=== PATIENT | female | born 1980 | race Caucasian/White ===

== ENCOUNTER 2016-08-27 20:40 | Emergency (ER) | payer BC ==
[~2016-08-27] VITALS: Ht 167.6 cm; Wt 83.9 kg
[~2016-08-27 20:40] MED LIST: ANTIVERT/2525 MG PO; BENADRYL 25MG C25 MG PO; PHENERGAN 25MG.25 M1 OR
[2016-08-27] MEDS ORDERED: AUGMENTIN 875-1 EACH PO (21:29)
[2016-08-27] MEDS ORDERED: PROBIOTIC1 EAC3 PO (21:29)
--- NOTE | 2016-08-27 21:31 | Urgent Treatment Center Report ---
History of Present Issue Date/Time Seen by Provider 08/27/162112 Visit Reason Pt arrived:Walked Presenting Problem:PT WAS BUT BY A CAT AROUND 1800 ON HER RIGHT HAND Location if Accident: Onset of symptoms date/time:/ or onset unknown for:MEDICAL HX UNKNOWN Have you (or family members/close friends) recently traveled outside the [place]? N If Yes, where/when: Have you had exposure to infectious disease within the past month? TB? Other? Specify: c/o cat bite to right hand betwen thumb and 2nd digit "around 6" this evening. Was trying to put cat in carrier when dog jumped on her causing cat to bite. Cat belonged to patient. Wormed but otherwise not up to date on vaccines. Indoor and outdoor cat. Seems healthy. No sign of illness. Since bite, flushed wounds with running water, peroxide and alcohol. Swelling at site w/ blood drainage. Pain/ pressure around puncture wounds. Full ROM of fingers and hand but not without increasing pain. no redness, fever, aches. Last td unknown but sure more then 5 years ago. Source family Exam Limitations no limitations ALLERGIES Coded Allergies: No Known Allergies (08/27/16) History Medical History General Angina: No AK: No Hypertension? No Hyperlipidemia? No CHF? No COPD? No Asthma? No CVA? No Seizures? No Diabetes? No GB Disease: Yes MRSA? No TB? No Cancer? No Immunization HX DT/Tetanus 5-10 YRS Surgical Hx Previous Surgery?Y GALLBLADDER Social History Smoking Hx Smoker: Current Every Day Smoker Tobacco: Yes Type Cigarettes Packs/day < 1 Pack Alcohol Alcohol: No Review of Systems All Other Systems Reviewed and Negative Constitutional see HPI Musculoskeletal see HPI Skin see HPI, denies change in color Psychiatric/Neurological denies numbness, denies paresthesia, denies tingling, denies weakness Physical Exam Vital Signs Vital Signs Date Time Temp Pulse Resp B/P Pulse O2 O2 Flow FiO2 Ox Delivery Rate 08/27 2132 98.2 78 16 157/94 98 08/27 2041 98.2 78 16 157/94 98 General Appearance no apparent distress Respiratory Status No: respiratory distress. Cardiovascular no peripheral edema Peripheral Pulses Pulses normal Yes (radial) Extremities normal range of motion, approx 1mm puncture wounds x 2 to dorsal surface right hand, one in thenar space and other over mid shaft of 2-3rd metacarpal, mild swelling between the two puncture wounds, no redness, scant serosang drainage, tender Strength 5 Upper Ext (L), 5 Upper Ext (R) Neurologic alert, no motor/sensory deficits (right hand/digits) Skin warm/dry, see extremities Medical Decision Making LABS/Meds/Orders Pt receiving controlled substance in ED? No Results/Orders Current Medication Orders Sig/Marlen Start time Last Medication Dose Route Stop Time Status Admin Diphtheria/Pertussis/ 0.5 ML ONCE ONE 08/27 2129 DC 08/27 Tetanus Vacc IM 08/27 Diphtheria/Pertussis/ 0 .STK-MED ONE 08/27 2126 DC Tetanus Vacc IM Departure Departure Time of Disposition 2123 Disposition DC Home or Self Care(routine) Clinical Impression Primary Impression: Cat bite of hand Qualifiers: Encounter type: initial encounter Laterality: right Qualified Code: S61.451A - Open bite of right hand, initial encounter Condition STABLE Referrals Yusuf MILLER,Tommie (Family) 2-3 days to check healing Immediately for new or worsening symptoms Patient Instructions DI for Cat Bite, Tetanus, Diphtheria, and Pertussis Vaccine Additional Instructions Start antibx immediately. Friend is able to get pt augmentin tonight!! Continue to flush wound. No additional peroxide or alcohol necessary. Move fingers, hand, wrist, arm as typically would. Not using can increase pain and swelling Elevate to reduce swelling cool compresses Ibuprofen as needed for pain and swelling. Can alternate with tylenol for additional pain relief Monitor very closely. Increase risk for infection. Report any worsening pain, swelling, redness, streaking, fever, enlarged lymph nodes immediately. health department might be in touch. All animal bites are reported. Updated tdap vaccine. You have now been vaccinated against tetanus but also pertussis (whooping cough) if someone asks. Discharge Counseling Counseled pt/family regarding diagnosis, medications/RX, home care, follow up needs Prescriptions Current Visit Scripts Amoxicillin/Potassium Clav (Augmentin 875-125 Tablet) 1 EACH PO BID #20 TAB Lactobacillus Combo No.11 (Probiotic) 1 EACH PO DIRECTED #1 / at 2150
[2016-08-27 21:33] VITALS: BP 157/94
== END 2016-08-27 21:33 | disposition home or self-care (01) ==
LOC: UTC 20:40
DX: S61.451A Open bite of right hand, initial encounter (principal); Z23 Encounter for immunization; Z72.0 Tobacco use; W55.01XA Bitten by cat, initial encounter; Y92.009 Unspecified place in unspecified non-institutional (private) residence as the place of occurrence of the external cause

== ENCOUNTER 2017-04-28 18:54 | Emergency (ER) | payer BC ==
[~2017-04-28] VITALS: Ht 167.6 cm; Wt 90.7 kg
[~2017-04-28 18:54] MED LIST changes: +AUGMENTIN 875-1 EACH PO; +PROBIOTIC1 EAC3 PO
--- OUTSIDE RECORDS SUMMARY | 2017-04-28 19:04 | External Medical Summary Rpt | CCD ---
Author Author , HIRA INIGUEZ Address Unknown Phone [email or web address] Purpose Continuity of Care Document - through 2016
--- OUTSIDE RECORDS SUMMARY | 2017-04-28 19:04 | External Medical Summary Rpt | CCD ---
Author Author KEELEY Address Unknown Phone [email or web address] Purpose Continuity of Care Document - through 2016
--- OUTSIDE RECORDS SUMMARY | 2017-04-28 19:04 | External Medical Summary Rpt | CCD ---
Author Author KEELEY Address Unknown Phone [email or web address] Purpose Continuity of Care Document - through 2016
--- OUTSIDE RECORDS SUMMARY | 2017-04-28 19:04 | External Medical Summary Rpt | CCD ---
Author Author , HIRA INIGUEZ Address Unknown Phone [email or web address] Purpose Continuity of Care Document - through 2016
--- OUTSIDE RECORDS SUMMARY | 2017-04-28 19:05 | External Medical Summary Rpt ---
Author Author HIRA Alonso, [employer] Address Unknown Phone Unavailable
--- OUTSIDE RECORDS SUMMARY | 2017-04-28 19:05 | External Medical Summary Rpt | CCD ---
Demographics Preferred Language Syrian Marital Status Unknown Catholic Affiliation Unknown Race Unknown Ethnic Group Unknown Author Author , [employer] Address Unknown Phone Immunization Unable to retrieve immunization data due to connection failure with Immunization Registry. Please try again later.
--- OUTSIDE RECORDS SUMMARY | 2017-04-28 19:05 | External Medical Summary Rpt | CCD ---
Demographics Preferred Language Portuguese Marital Status Unknown Congregation Affiliation Unknown Race Unknown Ethnic Group Unknown Author Author , [employer] Address Unknown Phone Immunization Unable to retrieve immunization data due to connection failure with Immunization Registry. Please try again later.
[2017-04-28 19:28] LABS: URINE BILIRUBIN - DIPSTICK NEGATIVE (NEG); UTC URINE PREGNANCY NEGATIVE (NEG)
[2017-04-28 19:29] LABS: URINE BLOOD SMALL (NEG)
[2017-04-28 19:53] LABS: HEMOGLOBIN 14.3 g/dL (12.2-16.2); LYMPH # 2.9 K/mm3 (0.7-4.5); LYMPH % 23.5 % (10-50.0)
--- NOTE | 2017-04-28 20:09 | Urgent Treatment Center Report ---
History of Present Issue Date/Time Seen by Provider 04/28/171906 Visit Reason Pt arrived:Walked Presenting Problem:PT C/O ABD PAIN. PT EXPRESSES CONCERN THAT SHE MAY HAVE FOOD POISONING Location if Accident: Onset of symptoms date/time:/ or onset unknown for:MEDICAL HX UNKNOWN Have you (or family members/close friends) recently traveled outside the [place]? N If Yes, where/when: Have you had exposure to infectious disease within the past month? TB? Other? Specify: Patient states that she felt fine until about 3 days ago when she eat 3-4 wings and after eating the wings she began to have diarrhea adn abdominal pain in the upper part of her abdomen States that it gets better and then she eats and pain returns State that she feels like she is bloated and having the feeling of fullness State that all her symptoms began after she eat the wings. State that today she has had a couple eppisodes of diarrhea but only after eating first. State that now she is just having the bloating feeling and discomfort in her upper abdomen area. ALLERGIES Coded Allergies: No Known Allergies (08/27/16) Home Medications Active Scripts Amoxicillin/Potassium Clav (Augmentin 875-125 Tablet) 1 EACH PO BID #20 TAB Prov: 08/27/16 Lactobacillus Combo No.11 (Probiotic) 1 EACH PO DIRECTED #1 / Prov: 08/27/16 History Medical History General CAD? No Angina: No NM: No Hypertension? No Hyperlipidemia? No CHF? No DVT? No PE? No COPD? No Asthma? No Anemia? No GERD? No Gastric ulcers? No GI Bleed? No Hernia? No Thyroid Problems? No Hypothyroidism? No CVA? No Seizures? No Diabetes? No Renal Insuffiency? No UTI? No Stones? No BPH? No GB Disease: Yes Nephritic Syndrome? No Asplenia? No Hepatitis? No Sickle Cell Disease? No Arthritis? No Migraines? No Cataracts? No Glaucoma? No MRSA? No HIV? No TB? No Anxiety? No Depression? No Cancer? No More? No Immunization HX DT/Tetanus Unknown Surgical Hx Previous Surgery?Y GALLBLADDER Social History Smoking Hx Smoker: Current Every Day Smoker Tobacco: Yes Type Cigarettes Packs/day < 1 Pack Alcohol Alcohol: No Review of Systems All Other Systems Reviewed and Negative Gastrointestinal abdominal pain, diarrhea, nausea, denies vomiting Physical Exam Vital Signs Vital Signs Date Time Temp Pulse Resp B/P Pulse O2 O2 Flow FiO2 Ox Delivery Rate 04/28 2052 98.2 109 16 159/98 97 04/28 2009 109 159/98 04/28 2009 96 154/90 04/28 2009 91 153/91 04/28 1904 98.2 95 16 132/75 97 General Appearance normal appearance, WD/WN, no apparent distress Ear, Nose, Throat hearing grossly normal, normal ENT inspection Respiratory Status Yes: trachea midline, chest symmetrical, non tender chest. No: respiratory distress. Lung Sounds bilateral: normal breath sounds, lungs clear. Cardiovascular normal exam, regular rate/rhythm Gastrointestinal normal bowel sounds, normal exam, non tender, soft, no guarding , no rebound, hemodynamically stable, bowel sounds assessed all four quads, no rebound tenderness, no worsening of pain with palpation, denies blood in stools, denies vomiting Neurologic alert, normal exam, oriented x 3 Comments Discussed risk and benefits with patient and recommended she go to ER patient refused and state that she wanted to be seen in the [facility] and did not want to go to ER Medical Decision Making LABS/Meds/Orders Pt receiving controlled substance in ED? No Results/Orders Laboratory Tests 04/28/171939: Sodium 139, Potassium 3.9, Chloride 105, Carbon Dioxide 21 L, BUN 6 L, Creatinine 0.5 L, Estimated Creat Clear 221 H, Estimated GFR (MDRD) 139, Glucose 107 H, Calcium 9.5, Total Bilirubin 0.4, AST 18, ALT 39, Alkaline Phosphatase 89, Total Protein 7.2, Albumin 3.7, Globulin 3.5 H, Albumin/ Globulin Ratio 1.1, WBC 12.4 H, RBC 4.55, Hgb 14.3, Hct 41.7, MCV 91.7, RDW 12.5, Plt Count 342, MPV 7.9, Gran % 67.5, Gran # 8.4 H, Lymphocytes % 23.5, Monocytes % 6.0, Eosinophils % 2.5, Basophils % 0.4, Lymphocytes # 2.9, Monocytes # 0.8, Eosinophils # 0.3, Basophils # 0.1, PUBS MCHC 34.4, MCH 31.5 H 04/28/171919: Urine Color YELLOW, Urine Appearance CLEAR, Urine pH 7.0, Ur Specific [place] 1.010, Urine Protein NEGATIVE, Urine Ketones NEGATIVE, Urine Blood SMALL, Urine Nitrate NEGATIVE, Urine Bilirubin NEGATIVE, Urine Urobilinogen 0.2, Ur Leukocyte Esterase TRACE H, Urine Glucose NEGATIVE, Urine Test NEGATIVE Current Medication Orders Sig/Marlen Start time Last Medication Dose Route Stop Time Status Admin Trimethoprim/ 0 .STK-MED ONE 04/28 1950 DC Sulfamethoxazole PO Multi-Ingredient GI 60 ML ONCE ONE 04/28 1930 DC 04/28 Drug PO 04/28 Multi-Ingredient GI 0 .STK-MED ONE 04/28 1922 DC Drug PO Orders Procedure Date/time Status ORTHOSTATIC B/P 04/28 2008 Active [facility] URINE 04/28 1920 Complete [facility] URINE DIPSTICK 04/28 1920 Complete CBC WITH AUTO DIFF 04/28 1920 Complete CHEM 12 PROFILE 04/28 1920 Complete Progress [facility] Progress Notes 1 Comment Patient refused transfer to ER for CT Scan and more extensive testing Patient aware of minimal testing available at the [facility] but still requested to stay in [facility] Patient state that after she took GI cocktail she feels much better and does not want to go to ER [facility] Progress Notes 2 Comment Patient was discussed with DR Griffin and informed that it was recommended that patient go to ER however patient refused and agreed Treat UTI with Bactrim and give Flagyl to cover diarrhea considering diarrhea began after eating wings with possible contamination of food poisioning [facility] Progress Notes 3 Comment Patient state that she is feeling much better prior to leaving the [facility] discussed lab results and discussed abnormal results with her and risk verses benefits and again recommended that she go to ER state that she is feeling better and if pain returns or worsens she will go to ER or follow up tomorrow with family doctor that she is feeling much better than when she arrived. Again mentioned to patient of risk of not going to ER for more extensive testing verbalized understanding and still refused to go Departure Departure Time of Disposition 2030 Disposition DC Home or Self Care(routine) Clinical Impression Primary Impression: UTI (urinary tract infection) Qualifiers: Urinary tract infection type: site unspecified Hematuria presence: without hematuria Qualified Code: N39.0 - Urinary tract infection, site not specified Secondary Impressions: Gastroenteritis Condition STABLE Referrals Tommie Goldberg MD (Family): Tomorrow-Call Office For further treatment and evaluation and review of labs Patient Instructions Diarrhea (Alternative Therapy), DIET-DIARRHEA NUTRITION [facility] , Loperamide, Urinary Tract Infection Additional Instructions Take medication as prescribed Follow up with family doctor tomorrow if symptoms continue Return if needed Go straight to the ER if abdominal pain returns and/or you begin to have blood in your stools or unable to rehydrate yourself after loose stools Discharge Counseling Counseled pt/family regarding diagnosis, test results, medications/RX, home care, follow up needs Prescriptions Current Visit Scripts Metronidazole (Flagyl) 500 MG PO TID #15 TAB SULFAMETHOXAZOLE W/TRIMETHOPRI (Bactrim Ds Tab) 1 TABLET PO BID #14 TAB Ondansetron (Zofran 4MG Odt) 4 MG PO Q6HP PRN NAUSEA AND VOMITING #20 TAB at 1157
--- NOTE | 2017-04-28 20:09 | Urgent Treatment Center Report ---
History of Present Issue Date/Time Seen by Provider 04/28/171906 Visit Reason Pt arrived:Walked Presenting Problem:PT C/O ABD PAIN. PT EXPRESSES CONCERN THAT SHE MAY HAVE FOOD POISONING Location if Accident: Onset of symptoms date/time:/ or onset unknown for:MEDICAL HX UNKNOWN Have you (or family members/close friends) recently traveled outside the [place]? N If Yes, where/when: Have you had exposure to infectious disease within the past month? TB? Other? Specify: Patient states that she felt fine until about 3 days ago when she eat 3-4 wings and after eating the wings she began to have diarrhea adn abdominal pain in the upper part of her abdomen States that it gets better and then she eats and pain returns State that she feels like she is bloated and having the feeling of fullness State that all her symptoms began after she eat the wings. State that today she has had a couple eppisodes of diarrhea but only after eating first. State that now she is just having the bloating feeling and discomfort in her upper abdomen area. ALLERGIES Coded Allergies: No Known Allergies (08/27/16) Home Medications Active Scripts Amoxicillin/Potassium Clav (Augmentin 875-125 Tablet) 1 EACH PO BID #20 TAB Prov: 08/27/16 Lactobacillus Combo No.11 (Probiotic) 1 EACH PO DIRECTED #1 / Prov: 08/27/16 History Medical History General CAD? No Angina: No [place]: No Hypertension? No Hyperlipidemia? No CHF? No DVT? No PE? No COPD? No Asthma? No Anemia? No GERD? No Gastric ulcers? No GI Bleed? No Hernia? No Thyroid Problems? No Hypothyroidism? No CVA? No Seizures? No Diabetes? No Renal Insuffiency? No UTI? No Stones? No BPH? No GB Disease: Yes Nephritic Syndrome? No Asplenia? No Hepatitis? No Sickle Cell Disease? No Arthritis? No Migraines? No Cataracts? No Glaucoma? No MRSA? No HIV? No TB? No Anxiety? No Depression? No Cancer? No More? No Immunization HX DT/Tetanus Unknown Surgical Hx Previous Surgery?Y GALLBLADDER Social History Smoking Hx Smoker: Current Every Day Smoker Tobacco: Yes Type Cigarettes Packs/day < 1 Pack Alcohol Alcohol: No Review of Systems All Other Systems Reviewed and Negative Gastrointestinal abdominal pain, diarrhea, nausea, denies vomiting Physical Exam Vital Signs Vital Signs Date Time Temp Pulse Resp B/P Pulse O2 O2 Flow FiO2 Ox Delivery Rate 04/28 2052 98.2 109 16 159/98 97 04/28 2009 109 159/98 04/28 2009 96 154/90 04/28 2009 91 153/91 04/28 1904 98.2 95 16 132/75 97 General Appearance normal appearance, WD/WN, no apparent distress Ear, Nose, Throat hearing grossly normal, normal ENT inspection Respiratory Status Yes: trachea midline, chest symmetrical, non tender chest. No: respiratory distress. Lung Sounds bilateral: normal breath sounds, lungs clear. Cardiovascular normal exam, regular rate/rhythm Gastrointestinal normal bowel sounds, normal exam, non tender, soft, no guarding , no rebound, hemodynamically stable, bowel sounds assessed all four quads, no rebound tenderness, no worsening of pain with palpation, denies blood in stools, denies vomiting Neurologic alert, normal exam, oriented x 3 Comments Discussed risk and benefits with patient and recommended she go to ER patient refused and state that she wanted to be seen [facility] and did not want to go to ER Medical Decision Making LABS/Meds/Orders Pt receiving controlled substance in ED? No Results/Orders Laboratory Tests 04/28/171939: Sodium 139, Potassium 3.9, Chloride 105, Carbon Dioxide 21 L, BUN 6 L, Creatinine 0.5 L, Estimated Creat Clear 221 H, Estimated GFR (MDRD) 139, Glucose 107 H, Calcium 9.5, Total Bilirubin 0.4, AST 18, ALT 39, Alkaline Phosphatase 89, Total Protein 7.2, Albumin 3.7, Globulin 3.5 H, Albumin/ Globulin Ratio 1.1, WBC 12.4 H, RBC 4.55, Hgb 14.3, Hct 41.7, MCV 91.7, RDW 12.5, Plt Count 342, MPV 7.9, Gran % 67.5, Gran # 8.4 H, Lymphocytes % 23.5, Monocytes % 6.0, Eosinophils % 2.5, Basophils % 0.4, Lymphocytes # 2.9, Monocytes # 0.8, Eosinophils # 0.3, Basophils # 0.1, PUBS MCHC 34.4, MCH 31.5 H 04/28/171919: Urine Color YELLOW, Urine Appearance CLEAR, Urine pH 7.0, Ur Specific [place] 1.010, Urine Protein NEGATIVE, Urine Ketones NEGATIVE, Urine Blood SMALL, Urine Nitrate NEGATIVE, Urine Bilirubin NEGATIVE, Urine Urobilinogen 0.2, Ur Leukocyte Esterase TRACE H, Urine Glucose NEGATIVE, Urine Test NEGATIVE Current Medication Orders Sig/Marlen Start time Last Medication Dose Route Stop Time Status Admin Trimethoprim/ 0 .STK-MED ONE 04/28 1950 DC Sulfamethoxazole PO Multi-Ingredient GI 60 ML ONCE ONE 04/28 1930 DC 04/28 Drug PO 04/28 Multi-Ingredient GI 0 .STK-MED ONE 04/28 1922 DC Drug PO Orders Procedure Date/time Status ORTHOSTATIC B/P 04/28 2008 Active [facility] URINE 04/28 1920 Complete [facility] URINE DIPSTICK 04/28 1920 Complete CBC WITH AUTO DIFF 04/28 1920 Complete CHEM 12 PROFILE 04/28 1920 Complete Progress [facility] Progress Notes 1 Comment Patient refused transfer to ER for CT Scan and more extensive testing Patient aware of minimal testing available at the [facility] but still requested to stay in [facility] Patient state that after she took GI cocktail she feels much better and does not want to go to ER [facility] Progress Notes 2 Comment Patient was discussed with DR Griffin and informed that it was recommended that patient go to ER however patient refused and agreed Treat UTI with Bactrim and give Flagyl to cover diarrhea considering diarrhea began after eating wings with possible contamination of food poisioning [facility] Progress Notes 3 Comment Patient state that she is feeling much better prior to leaving the [facility] discussed lab results and discussed abnormal results with her and risk verses benefits and again recommended that she go to ER state that she is feeling better and if pain returns or worsens she will go to ER or follow up tomorrow with family doctor that she is feeling much better than when she arrived. Again mentioned to patient of risk of not going to ER for more extensive testing verbalized understanding and still refused to go Departure Departure Time of Disposition 2030 Disposition DC Home or Self Care(routine) Clinical Impression Primary Impression: UTI (urinary tract infection) Qualifiers: Urinary tract infection type: site unspecified Hematuria presence: without hematuria Qualified Code: N39.0 - Urinary tract infection, site not specified Secondary Impressions: Gastroenteritis Condition STABLE Referrals Tommie Goldberg MD (Family): Tomorrow-Call Office For further treatment and evaluation and review of labs Patient Instructions Diarrhea (Alternative Therapy), DIET-DIARRHEA NUTRITION [facility] , Loperamide, Urinary Tract Infection Additional Instructions Take medication as prescribed Follow up with family doctor tomorrow if symptoms continue Return if needed Go straight to the ER if abdominal pain returns and/or you begin to have blood in your stools or unable to rehydrate yourself after loose stools Discharge Counseling Counseled pt/family regarding diagnosis, test results, medications/RX, home care, follow up needs Prescriptions Current Visit Scripts Metronidazole (Flagyl) 500 MG PO TID #15 TAB SULFAMETHOXAZOLE W/TRIMETHOPRI (Bactrim Ds Tab) 1 TABLET PO BID #14 TAB Ondansetron (Zofran 4MG Odt) 4 MG PO Q6HP PRN NAUSEA AND VOMITING #20 TAB at 3955
[2017-04-28] MEDS ORDERED: FLAGYL500 M1 PO (20:44)
[2017-04-28] MEDS ORDERED: BACTRIM DS 8001 TA1 PO (20:44)
[2017-04-28 20:52] VITALS: BP 159/98
[2017-04-28] MEDS ORDERED: ZOFRAN ODT4 MG PO (21:09)
== END 2017-04-28 20:52 | disposition home or self-care (01) ==
LOC: ER 18:54 → UTC 19:03
PROVIDERS: Nurse Practitioner
DX: N39.0 Urinary tract infection, site not specified (principal); K52.9 Noninfective gastroenteritis and colitis, unspecified